=== PATIENT | male | born 1990 | race Caucasian/White ===

== ENCOUNTER 2017-05-16 22:10 | Emergency (ER) | payer BC ==
--- NOTE | 2017-05-16 23:50 | ERNOTE ---
ENT HPI Presenting Symptoms: dental pain Time Seen by Provider: 05/16/17 23:20 Source: patient, RN notes reviewed Exam Limitations: no limitations - Immun/Allergies/Home Medications Immunizations: IMMUNIZATION HX Immunizations Up to Date Yes History of Influenza Vaccine No Hx Pneumococcal Vaccination No Allergies/Adverse Reactions: Allergies Allergy/AdvReac Type Severity Reaction Status Date / Time promethazine HCl AdvReac Severe "OFF THE Verified 05/16/17 22:20 [From Phenergan] WALL" Home Medications: HOME MEDICATIONS Multivitamin [One Daily Multivitamin] 1 each PO DAILY 05/16/17 [Last Taken Unknown] Amoxicillin Trihydrate [Amoxil] 500 mg PO Q8H #30 capsule 05/17/17 [Last Taken Unknown] HYDROcodone/ACETAMINOPHEN [G[place] 5-325 Tablet] 1 - 2 tab PO Q6H PRN #12 tab [Last Taken Unknown] Naproxen [Naprosyn] 500 mg PO BID #20 tablet 05/17/17 [Last Taken Unknown] - History of Present Illness Narrative: Patient states that he broke part of a tooth off a few months ago. It didn't bother him for a long time, but recently that tooth started hurting. The pain has gradually worsened, he is unable to control the pain at home and so presents here for further evaluation and treatment. Severity: Present: severe ENT Location: Present: dental Prearrival Treatment: Present: no prearrival treatment Modifying Factors - Improves: Reports: nothing Modifying Factors - Worsens: Reports: activity, other - eating and drinking Associated Symptoms - ENT: Reports: tooth pain Prior Treament: Reports: recently seen - by a dentist who took x-rays and referred the patient to [facility] for further evaluation and treatment. Review of Systems - Review of Systems Constitutional: Absent: recent illness, fever, chills EYE: Present: no symptoms reported ENT: Present: ear pain, other - tooth pain left #17 Respiratory: Absent: shortness of breath, cough, orthopnea, wheezing Cardiology: Absent: chest pain, palpitations Gastrointestinal/Abdominal: Absent: nausea, vomiting, diarrhea Genitourinary: Present: no symptoms reported Musculoskeletal: Present: no symptoms reported Skin: Present: no symptoms reported Neurological: Present: no symptoms reported - Patient's Past Medical History Patient History - Medical: Obesity Patient History - Cardiac/Respiratory: No pertinent hx Patient History - Cancer: No Hx of Cancer Patient History - Surgical Procedures: Noncontributory Patient History - Other: None - Social History Living Situations: home Psych History: No pertinent hx Smoking Status: Current every day smoker Patient requests Smoking Cessation Consult: No Initiate information on Smoking Cessation: No Alcohol Use: none Drug Use: none - Immunizations Immunizations Up to Date: Yes Hx Pneumococcal Vaccination: No History of Influenza Vaccine: No Physical Exam - Physical Exam General Appearance: Present: wd/wn, alert, moderate distress, obese Head Exam: Present: normal inspection, no evidence of injury Eye Exam: Normal inspection: bilateral, PERRL: bilateral, EOMI: bilateral Ears, Nose, Throat: Present: abnormal TM (L) - dull, normal pharynx, other - Tooth Fracture #17. Absent: cerumen impaction, nasal congestion Neck: Present: normal inspection, nontender Respiratory: Present: no respiratory distress, normal breath sounds, no accessory muscle use, chest nontender, lungs clear Cardiovascular/Chest: Present: regular rate, rhythm, no murmur, normal peripheral pulses Gastrointestinal/Abdominal: Present: normal bowel sounds, nontender, nondistended, soft, other - obese Back Exam: Present: normal inspection, normal range of motion Extremity Exam: Present: normal inspection, normal range of motion Neurological Exam: Present: alert, oriented, normal mood/affect, no motor/ sensory deficits Skin Exam: Present: normal color, warm/dry ED Progress - Vital Signs Patient's Vital Signs:: I have reviewed the patient's vital signs. Vital Signs: Vital Signs 05/16/17 22:15 Temperature 36.9 C Pulse Rate 97 Respiratory 20 Rate Blood Pressure 151/87 O2 Sat by Pulse 99 Oximetry - Progress/Reassessment Chief Complaint: Dental Problem Progress:: Improved Plan - Plan Plan: Toradol 60 mg IM, Amoxicillin 500 mg PO, Hydrocodone/acetaminophen 5/325 mg PO Departure Clinical Impression: Pain, dental - Departure Disposition: Home self-care Condition: Stable Instructions: Tooth Injuries Additional Instructions: Please call [facility] Thursday to see about getting in sooner, the general number for [facility] is . Prescriptions: Amoxicillin Trihydrate [Amoxil] 500 mg PO Q8H #30 capsule HYDROcodone/ACETAMINOPHEN [G[place]stead 5-325 Tablet] 1 - 2 tab PO Q6H PRN #12 tab PRN Reason: Pain Naproxen [Naprosyn] 500 mg PO BID #20 tablet
[2017-05-17] MEDS ORDERED: HYDROcodone/ACETAMINOPHEN 1 EACH TABLET PO ONE (00:08)
[2017-05-17] MEDS ORDERED: AMOXICILLIN TRIHYDRATE 250 MG CAPSULE PO ONE (00:08)
[2017-05-17] MEDS ORDERED: KETOROLAC TROMETHAMINE 60 MG/2 ML VIAL IM ONE ×2 (00:08→00:13)
[2017-05-17] MEDS ORDERED: AMOXICILLIN TRIHYDRATE 250 MG CAPSULE ONE (00:13)
[2017-05-17] MEDS ORDERED: HYDROcodone/ACETAMINOPHEN 1 EACH TABLET ONE (00:13)
[2017-05-17 06:08] VITALS: BP 128/72
== END 2017-05-17 00:26 | disposition home or self-care (01) ==
LOC: ER 22:10
DX: K08.89 Other specified disorders of teeth and supporting structures (principal); F17.200 Nicotine dependence, unspecified, uncomplicated

== ENCOUNTER 2017-06-07 12:26 | Emergency (ER) | payer BC ==
[2017-06-07 12:34] VITALS: BP 145/87
[2017-06-07] MEDS ORDERED: KETOROLAC TROMETHAMINE 60 MG/2 ML VIAL IM ONE ×2 (12:46→12:48)
--- NOTE | 2017-06-07 12:56 | ERNOTE ---
Back Pain ER HPI Date of Service: 06/07/17 Presenting Symptoms: injury/pain to back Time Seen by Provider: 06/07/17 12:41 Source: patient Exam Limitations: no limitations Immunizations: IMMUNIZATION HX Immunizations Up to Date Yes History of Influenza Vaccine No Hx Pneumococcal Vaccination No Allergies/Adverse Reactions: Allergies promethazine HCl [From Phenergan] Adverse Reaction (Severe, Verified 06/07/17 12 :34) "OFF THE WALL" Home Medications: HOME MEDICATIONS Cyclobenzaprine HCl [Flexeril] 5 mg PO TID #10 tab 06/07/17 [Last Taken Unknown] Narrative: Was helping with [employer] clean up yesterday. He swung an entertainment center up and on to truck. [place]oy[place] a pop in his lower back. Did not have much discomfort until he awoke this AM> left lumbar paraspinous was stiff, very sore, and hurt to move. Denies any other symptoms. Timing: Reports: constant Modifying Factors - (Worsens): Reports: movement flexion Review of Systems - Review of Systems Constitutional: Present: no symptoms reported ENT: Present: no symptoms reported Respiratory: Present: no symptoms reported Cardiology: Present: no symptoms reported Gastrointestinal/Abdominal: Present: no symptoms reported Musculoskeletal: Present: other - fleeting left shoulder pain this AM Neurological: Present: no symptoms reported - Patient's Past Medical History Patient History - Medical: Obesity Patient History - Cardiac/Respiratory: No pertinent hx Patient History - Cancer: No Hx of Cancer Patient History - Surgical Procedures: Noncontributory Patient History - Other: None - Family History Mother Family History - Cancer: Breast Father Family History - Medical: Diabetes Type 2 Insulin Dependent Family History - Cardiac/Respiratory: Hypertension - Social History Psych History: No pertinent hx Smoking Status: Current every day smoker - Immunizations Immunizations Up to Date: Yes Hx Pneumococcal Vaccination: No History of Influenza Vaccine: No Physical Exam - Physical Exam General Appearance: Present: wd/wn, alert, no apparent distress, obese Neck: Present: normal inspection, nontender Respiratory: Present: no respiratory distress Back Exam: Present: normal inspection, muscle spasm - left lumbar paraspinuous. Absent: vertebral tenderness ED Progress - Vital Signs Patient's Vital Signs:: I have reviewed the patient's vital signs. Vital Signs: Vital Signs 06/07/17 12:30 Temperature 36.6 C Pulse Rate 104 H Respiratory 16 Rate Blood Pressure 145/87 O2 Sat by Pulse 98 Oximetry - Progress/Reassessment Chief Complaint: Back Pain Plan - Plan Plan: Flexeril, ibprofen, tylenol Follow up with PCP Departure Clinical Impression: Acute lumbar myofascial strain - Departure Disposition: Home self-care Condition: Good Instructions: Muscle Strain, [id number] Additional Instructions: Take flexeril as directed Use ibuprofen 600 mg alternating with 975 mg tylenol every 3 hours. Limit activity Use warm compress Follow up with PCP Prescriptions: Cyclobenzaprine HCl [Flexeril] 5 mg PO TID #10 tab
== END 2017-06-07 13:01 | disposition home or self-care (01) ==
LOC: ER 12:26
DX: S39.012A Strain of muscle, fascia and tendon of lower back, initial encounter (principal); F17.200 Nicotine dependence, unspecified, uncomplicated; X50.0XXA Overexertion from strenuous movement or load, initial encounter; Y93.E9 Activity, other interior property and clothing maintenance

== ENCOUNTER 2019-10-15 10:51 | Observation (INO) ==
[2019-10-15] MEDS ORDERED: MORPHINE SULFATE 2 MG/ML DISP.SYRIN IV ONE ×2 (11:08→15:44)
--- NOTE | 2019-10-15 11:18 | ERNOTE ---
Medical Problem HPI - Narrative Date of Service: 10/15/19 - General Chief Complaint: General Assessment Time Seen by Provider: 10/15/19 11:02 Source: patient Exam Limitations: no limitations - Immun/Allergies/Home Medications Immunizations: IMMUNIZATION HX Immunizations Up to Date Yes History of Influenza Vaccine No Hx Pneumococcal Vaccination No Allergies/Adverse Reactions: Allergies promethazine HCl [From Phenergan] Adverse Reaction (Severe, Verified 10/15/19 10:59) "OFF THE WALL" Home Medications: HOME MEDICATIONS NK 10/15/19 [Last Taken Unknown] - Pain Score Pain Score #1 Pain Score: 7 - History of Present History Narrative: The patient is a 28 year old male who presents for dyspnea and right sided chest pain which has been present for 3 days. There are associated symptoms of right back pain. The patient reports pain to right chest and back, 03/09. There are no alleviating factors. There are aggravating factors of activity. Previous treatments have included: Norflex and Morphine given last evening with improvement then recurred. The past medical history includes: noncontributory. The social history is positive for current tobacco use, patient denies use of vape. The patient has had no ill contacts. Patient states that earlier in the week he developed cough with shortness of breath which has since gradually worsened. Patient states on Thursday he was walking and slipped on the ice catching himself with right arm grabbing nearby object. Patient denies fall. Patient states since Thursday symptoms have gradually worsened. Review of Systems - Review of Systems Constitutional: Present: recent illness, fatigue. Absent: fever EYE: Present: no symptoms reported ENT: Absent: ear pain, nasal drainage, sore throat Respiratory: Present: shortness of breath, cough Cardiology: Present: chest pain Gastrointestinal/Abdominal: Present: nausea. Absent: vomiting, diarrhea, abdominal pain Genitourinary: Present: no symptoms reported. Absent: dysuria Musculoskeletal: Present: back pain Skin: Present: no symptoms reported. Absent: rash Neurological: Present: dizziness/light-headedness All Other Systems: All systems neg except as marked Medical History (Last Reviewed 10/15/19 @ 11:10 by DION Moore) Hemorrhoids Obesity Surgical History: Surgical History (Last Reviewed 10/15/19 @ 11:10 by DION Moore) No pertinent past surgical history Social History: (Last Reviewed 10/15/19 @ 11:10 by DION Moore) Social History: adopted: No foster care: No current occupational status: employed Tobacco: Smoking Status: Current every day smoker Alcohol: alcohol intake frequency: holiday/special occasion Substance Use: substance use type: does not use Physical Exam - Physical Exam General Appearance: Present: wd/wn, alert, moderate distress Head Exam: Present: normal inspection, no evidence of injury Eye Exam: Normal inspection: bilateral Neck: Present: normal inspection, nontender, full range of motion Respiratory: Present: normal breath sounds, lungs clear, chest tenderness - right anterior chest, right lateral chest, respiratory distress - tachypnea, accessory muscle use Cardiovascular/Chest: Present: no murmur, normal peripheral pulses, tachycardia Gastrointestinal/Abdominal: Present: normal bowel sounds, nontender, nondistended, soft, no organomegaly Back Exam: Present: no vertebral tenderness, other - tenderness with palpation over right scapula and right thoracic paraspinal Extremity Exam: Present: normal range of motion, bony tenderness - right scapula, pain over acromium and distal clavicle, other - able to hold extension of right arm against resistance Neurological Exam: Present: alert, oriented, normal mood/affect, no motor/sensory deficits Skin Exam: Present: normal color, warm/dry Progress - Date and Time Seen: Date and Time: 10/15/19 11:48 Well's score, 7.5 high risk. Will proceed with CTA chest. 10/15/19 13:12 Patient feeling better with improved controlled pain along with improvement to tachypnea, RR rate 28. Patient SpO2 97% on 2l/nc. Remains tachycardic with rate of 115. Due to patient presentation with tachypnea, tachycardia and hypoxia with SpO2 90% on RA prior to administration of oxygen will discuss case with for admission with initiation of blood thinner. After discussion with will have case management determine what medication Xarelto vs Eliquis is covered by patient's insurance for discharge. Requesting discussion with pharmacy for Lovenox dosing. Discussed patient case with Tam Malcolm pharmacist and dosing would remain 1mg/kg without max dose, 190mg Q 12 hrs SQ. 10/15/19 13:46 Patient will be admitted for observation admission due to suspected PE with persistent hypoxia and pain management. Patient states pain improved, 01/07. Patient appears improved with RR 23 SpO2 97% remaining on 2l/nc. - Results and Orders Patient's Lab Results:: I have reviewed the patient's lab results. - Vital Signs Patient's Vital Signs:: I have reviewed the patient's vital signs. Vital Signs: Vital Signs 10/15/19 10:52 Temperature 36.8 C Pulse Rate 113 H Respiratory Rate 20 Blood Pressure 152/95 H O2 Sat by Pulse Oximetry 97 - EKG EKG #1 EKG: NSR - tachycardia 112, RBBB - incomplete QRS 114 EKG read: Reviewed by me EKG Comments: No previous tracing for comparison. - CT/Ultrasound CT/Ultrasound Narrative: IMPRESSION: 1. Virtually nondiagnostic exam due to inadequate opacification of the pulmonary arterial system, patient body habitus and breathing motion artifact. Suspected lower lobe PEs bilaterally however again exam is nondiagnostic. Clinical correlation strongly advised 2. Additional comments and findings are as above Electronically signed by Jonatan Rodriguez M.D.. - Progress/Reassessment Chief Complaint: General Assessment Progress:: Improved Departure Clinical Impression: Suspected pulmonary embolism, Hypoxia - Departure Disposition: Still a patient Condition: Stable
[2019-10-15 11:42] LABS: Hematocrit 41.2 % (42.0-52.0); Hemoglobin 13.7 gm/dL (13.5-18.0); Mean Cell Volume 90.7 fl (78-100); Mean Corpuscular Hemoglobin 30.2 pg (27-31); Mean Corpuscular Hgb Conc 33.3 g/dl (32-36); Mean Platelet Volume 10.9 fl (8-11.3); Platelet Count 235 K/mm3 (150-450); Red Blood Count 4.54 M/mm3 (4.7-6.0); Red Cell Distribution Width 13.2 % (11.5-14.0); White Blood Count 14.8 K/mm3 (4.0-10.5)
[2019-10-15] MEDS ORDERED: MORPHINE SULFATE 4 MG/ML SYRG IV ONE (11:48)
[2019-10-15 11:56] LABS: Total Cells Counted 100
[2019-10-15 12:06] LABS: ALT 57 U/L (19-67); AST 29 U/L (0-48); Albumin * 3.8 gm/dl (3.4-5.0); Alkaline Phosphatase * 52 U/L (50-170); Anion Gap 15.5 mmol/L (6.8-13.8); BUN/Creatinine Ratio 14.3 (9.0-21.6); Bilirubin, Total 0.5 mg/dL (0.0-1.1); Blood Urea Nitrogen 12 mg/dL (6-23); Ca. Corrected For Albumin 8.8 mg/dL (8.4-10.2); Carbon Dioxide 25.4 mmol/L (24-32.6); Chloride 102 mmol/L (97-106); Glucose * 111 mg/dL (70-110); Potassium 3.9 mmol/L (3.4-4.6); Sodium 139 mmol/L (132-142); Total Protein 7.9 gm/dL (6.2-8.2)
[2019-10-15 12:07] LABS: Atypical (Reactive) Lymph 1 % (0-2); Lymphocyte 15 % (20-51); Monocyte 3 % (0-9); Neutrophil 81 % (42-75); Platelet Estimate Normal (NORMAL); RBC Morphology Normal (NORMAL); Troponin I Less than 0.017 ng/mL (0.00-0.10)
[2019-10-15] MEDS ORDERED: HYDROmorphone HCL 1 MG/ML DISP.SYRIN IV ONE (12:16)
[2019-10-15] MEDS ORDERED: ENOXAPARIN SODIUM 100 MG/ML SYRG SC SCH (13:30)
[2019-10-15] MEDS ORDERED: ACETAMINOPHEN 325 MG TABLET PO PRN (13:54)
[2019-10-15] MEDS ORDERED: MORPHINE SULFATE 2 MG/ML DISP.SYRIN IV PRN (13:57)
--- NOTE | 2019-10-15 14:40 | HP ---
Chief Complaint - Chief Complaint Date of Service: 10/15/19 Time of Service: 14:07 Chief Complaint: I have right-sided chest pain History of Present Illness: 28-year-old male with past medical history of nicotine dependence, morbid obesity, was evaluated in the ER due to ongoing right-sided thoracic pain that started last Thursday. Patient reports while out shoveling snow and attempting to get into his vehicle he slipped on some black ice and nearly fell, he was able to prevent himself from completely falling by grabbing onto his truck with his right arm. Patient reports the day after that he developed a mildly productive cough and chest congestion and thought he had a simple cold. However several hours later he started having right-sided thoracic pain that he radiated from his right upper thorax into his right shoulder, he also reports pain deep into the shoulder joint making him suspect that he tore his rotator cuff. Patient's pain continued to increase and made it difficult for him to sleep and evening the pain became uncontrollable so he had to come to the ER. Patient was treated with multiple shots of morphine as well as a muscle relaxant and was discharged home after control of the pain was achieved. However he reports the following morning the pain returned even more intense than before, so he had to return to the ER. Patient denies any fever or chills or any recent illness. He also denied having this pain before. He says there are no alleviating factors and aggravating factors is any type of movement. Patient denies any cardiac or pulmonary history but says he has been smoking for 5 years but is currently taking Chantix in order to quit. He went from smoking a pack of cigarettes to 1-1/2 packs of cigarettes a day. Patient also denied any childhood diseases or history of coagulopathies. Medical History (Last Reviewed 10/15/19 @ 11:10 by DION Moore) Hemorrhoids Obesity Surgical History: Surgical History (Last Reviewed 10/15/19 @ 11:10 by DION Moore) No pertinent past surgical history Social History: (Last Reviewed 10/15/19 @ 11:10 by DION Moore) Social History: adopted: No foster care: No current occupational status: employed Tobacco: Smoking Status: Current every day smoker Alcohol: alcohol intake frequency: holiday/special occasion Substance Use: substance use type: does not use Peds Patient Hx - Developmental: No Pertinent Hx Peds Patient Hx - Medical: No Pertinent Hx Peds Patient Hx - Cardiac/Respiratory: No Pertinent Hx Peds Patient Hx - Surgical: No Surgical History Patient History - Cancer: No Hx of Cancer Review Of Systems (GEN) - Review of Systems Generalized/Overall Review: Present: No Symptoms Reported EENTM: Present: No Symptoms Reported Respiratory: Present: Cough, Shortness of Breath Cardiac: Present: Chest Pain Abdominal: Present: No Symptoms Reported Genitourinary: Present: No Symptoms Reported Musculoskeletal: Present: No Symptoms Reported, Joint Pain - Right shoulder and right upper thoracic pain, Muscle Pain Neurological: Present: No Symptoms Reported Skin: Present: No Symptoms Reported Endocrine: Present: No Symptoms Reported Immunizations: IMMUNIZATION HX Immunizations Up to Date Yes History of Influenza Vaccine No Hx Pneumococcal Vaccination No Allergies/Adverse Reactions: Allergies Allergy/AdvReac Type Severity Reaction Status Date / Time promethazine HCl AdvReac Severe "OFF THE Verified 10/15/19 10:59 [From Phenergan] WALL" Home Medications: HOME MEDICATIONS NK 10/15/19 [Last Taken Unknown] Exam - Exam Vital Signs: Vital Signs - Last Taken Temp 36.8 C 10/15/19 10:52 Pulse 112 H 10/15/19 13:58 Resp 20 10/15/19 13:58 BP 135/73 10/15/19 13:58 Pulse Ox 97 10/15/19 13:58 Constitutional: Present: Alert, Oriented x3, Cooperative, Well developed, Well nourished, Acute distress, Mild distress, Morbidly obese ENT Exam: Present: normal ENT inspection, hearing grossly normal, pharynx normal, TMs normal Eye Exam: bilateral eye: normal inspection, PERRL, EOMI Neck: Present: non-tender, full range of motion, supple, normal inspection, trachea midline Back Exam: Present: normal inspection, no CVA tenderness, no vertebral tenderness Breasts: Present: Exam deferred Respiratory: Present: lungs clear, inspiration - Patient has a short inspiratory phase which is interrupted by spasmodic pain of his thorax, he appears uncomfor table. Cardiovascular/Chest: Present: normal peripheral pulses, regular rate, rhythm, no chest tenderness, no edema, no gallop, no JVD, no murmur, no rub, chest tender - Tenderness to palpation in right upper thorax and right shoulder Peripheral Pulses: carotid (R): 3+, carotid (L): 3+, femoral (R): 3+, femoral (L): 3+, dorsalis-pedis (R): 3+, dorsalis-pedis (L): 3+ Abdomen: Present: nontender, nondistended, no rebound tenderness, obese /Rectal: Present: Exam deferred Extremity: Present: normal range of motion, non-tender, normal inspection, no pedal edema, no calf tenderness, normal capillary refill, other - Pain on range of motion of right shoulder Skin Exam: Present: normal color, warm/dry, no cyanosis Lymphatic: Present: no adenopathy Neurologic: Present: tripper II-XII nml as tested, normal cerebellar test, no motor/sensory deficits, alert, normal mood/affect, oriented x 3 Appearance: Present: appropriate appearance, appropriate insight, neat, no memory impairment Eye contact: Present: cooperative, good eye contact, normal speech Thoughts: Present: normal thought pattern, no apparent hallucination Diagnostic Studies: Abnormal Lab Results 10/15/19 10/15/19 10/15/19 Range/Units 11:35 11:35 11:35 WBC 14.8 H (4.0-10.5) K/mm3 RBC 4.54 L (4.7-6.0) M/mm3 Hct 41.2 L (42.0-52.0) % Neutrophils % (Manual) 81 H (42-75) % Lymphocytes % (Manual) 15 L (20-51) % Neutrophils # (Manual) 12.0 H (1.3-6.0) K/mm3 D-Dimer 1.30 H (0.19-0.49) ug/mL Anion Gap 15.5 H (6.8-13.8) mmol/L Random Glucose 111 H (70-110) mg/dL Laboratory Results WBC 14.8 K/mm3 (4.0-10.5) H 10/15/19 11:35 RBC 4.54 M/mm3 (4.7-6.0) L 10/15/19 11:35 Hgb 13.7 gm/dL (13.5-18.0) 10/15/19 11:35 Hct 41.2 % (42.0-52.0) L 10/15/19 11:35 MCV 90.7 fl (78-100) 10/15/19 11:35 MCH 30.2 pg (27-31) 10/15/19 11:35 MCHC 33.3 g/dl (32-36) 10/15/19 11:35 RDW 13.2 % (11.5-14.0) 10/15/19 11:35 Plt Count 235 K/mm3 (150-450) 10/15/19 11:35 MPV 10.9 fl (8-11.3) 10/15/19 11:35 Neutrophils % (Manual) 81 % (42-75) H 10/15/19 11:35 Lymphocytes % (Manual) 15 % (20-51) L 10/15/19 11:35 Monocytes % (Manual) 3 % (0-9) 10/15/19 11:35 Neutrophils # (Manual) 12.0 K/mm3 (1.3-6.0) H 10/15/19 11:35 Lymphocytes # (Manual) 2.2 k/mm3 (1.5-3.5) 10/15/19 11:35 Monocytes # (Manual) 0.4 k/mm3 (0.0-1.0) 10/15/19 11:35 Atypic/Reactive Lymphs 1 % (0-2) 10/15/19 11:35 Platelet Estimate Normal (NORMAL) 10/15/19 11:35 RBC Morphology Normal (NORMAL) 10/15/19 11:35 D-Dimer 1.30 ug/mL (0.19-0.49) H 10/15/19 11:35 Sodium 139 mmol/L (132-142) 10/15/19 11:35 Plasma Sodium 139 mmol/L (130-142) 10/15/19 11:35 Potassium 3.9 mmol/L (3.4-4.6) 10/15/19 11:35 Chloride 102 mmol/L (97-106) 10/15/19 11:35 Carbon Dioxide 25.4 mmol/L (24-32.6) 10/15/19 11:35 Anion Gap 15.5 mmol/L (6.8-13.8) H 10/15/19 11:35 BUN 12 mg/dL (6-23) 10/15/19 11:35 Creatinine 0.84 mg/dL (0.4-1.4) 10/15/19 11:35 Est GFR (Non-Af Amer) 116 mL/min (60-130) 10/15/19 11:35 BUN/Creatinine Ratio 14.3 (9.0-21.6) 10/15/19 11:35 Random Glucose 111 mg/dL (70-110) H 10/15/19 11:35 Calcium 9.0 mg/dL (7.9-10.9) 10/15/19 11:35 Calcium Adj for Albumin 8.8 mg/dL (8.4-10.2) 10/15/19 11:35 Total Bilirubin 0.5 mg/dL (0.0-1.1) 10/15/19 11:35 AST 29 U/L (0-48) 10/15/19 11:35 ALT 57 U/L (19-67) 10/15/19 11:35 Alkaline Phosphatase 52 U/L (50-170) 10/15/19 11:35 Troponin I Less than 0.017 ng/mL (0.00-0.10) 10/15/19 11:35 Total Protein 7.9 gm/dL (6.2-8.2) 10/15/19 11:35 Albumin 3.8 gm/dl (3.4-5.0) 10/15/19 11:35 Assessment/Plan - Narrative Narrative: Patient was evaluated medical chart was reviewed and decision to admit to observation for a diagnosis of bilateral pulmonary embolism and right thoracic pain was made. Patient had an elevated d-dimer and a well score of 7 indicating significant risk of PE, therefore CTA of chest was ordered which revealed probable bilateral pulmonary embolisms. Radiologist reported that it was difficult to confirm the suspicion given the patient's breathing motion artifacts and limited visualization due to his large body habitus. However given the patient's clinical presentation and his risk factors such as nicotine dependence and significant morbid obesity, pulmonary embolism is likely. Therefore patient was transferred to the [facility] floor where he will be treated with therapeutic levels of anticoagulants, medication for optimal pain control, and any other necessary medications. We will keep him under close monitoring and on telemetry for any worsening of his condition. Patient also had an EKG done in the ER that demonstrated a right bundle branch block and sinus tachycardia, cannot be determined if the right bundle branch block is new however sinus tachycardia can be explained by pulmonary embolisms. We will continue to monitor the patient closely and will discuss proper anticoagulation therapy for discharge. - Assessment/Plan (1) Bilateral pulmonary embolism Problem: Acute (2) Morbid obesity Problem: Chronic (3) Smoker Problem: Acute (4) Nicotine dependence Problem: Acute (5) Injury of muscle of chest wall Problem: Acute (6) Fall due to ice or snow Problem: Acute
[2019-10-15] MEDS ORDERED: ALPRAZolam 0.25 MG TABLET PO PRN (14:41)
[2019-10-15] MEDS ORDERED: CYCLOBENZAPRINE HCL 10 MG TABLET PO SCH (17:00)
[2019-10-15 17:21] VITALS: BP 130/50
--- NOTE | 2019-10-17 12:20 | DS ---
(1) Bilateral pulmonary embolism Problem: Acute (2) Morbid obesity Problem: Chronic (3) Smoker Problem: Acute (4) Nicotine dependence Problem: Acute (5) Injury of muscle of chest wall Problem: Acute (6) Fall due to ice or snow Problem: Acute Date of Discharge:: 10/15/19 Hospital Course: Px signed out AMA and went to [facility]. Procedures Performed: none Results and Findings: Lab Pending Results 10/15/19 11:35: WBC 14.8 H, RBC 4.54 L, Hgb 13.7, Hct 41.2 L, MCV 90.7, MCH 30.2, MCHC 33.3, RDW 13.2, Plt Count 235, MPV 10.9, Neutrophils % (Manual) 81 H, Lymphocytes % (Manual) 15 L, Monocytes % (Manual) 3, Neutrophils # (Manual) 12.0 H, Lymphocytes # (Manual) 2.2, Monocytes # (Manual) 0.4, Atypic/Reactive Lymphs 1, Platelet Estimate Normal, RBC Morphology Normal 10/15/19 11:35: Sodium 139, Plasma Sodium 139, Potassium 3.9, Chloride 102, Carbon Dioxide 25.4, Anion Gap 15.5 H, BUN 12, Creatinine 0.84, Est GFR (Non-Af Amer) 116, BUN/Creatinine Ratio 14.3, Random Glucose 111 H, Calcium 9.0, Calcium Adj for Albumin 8.8, Total Bilirubin 0.5, AST 29, ALT 57, Alkaline Phosphatase 52, Troponin I Less than 0.017, Total Protein 7.9, Albumin 3.8 10/15/19 11:35: D-Dimer 1.30 H Disposition: Against medical advice Condition: Stable Face to Face Encounter completed per CMS Guidelines: No Discharge Activity: Activity as tolerated Discharge Diet: Low salt Complete Home Medications List: Complete Home Medication List: Azithromycin [Zithromax] 250 mg PO DAILY #4 tab 10/15/19 Cefdinir 300 mg PO BID #18 cap 10/15/19 Cyclobenzaprine HCl [Flexeril] 10 mg PO TID PRN #30 tab 10/15/19 Naproxen Sodium 550 mg PO BID #30 tab 10/15/19
== END 2019-10-15 16:00 | disposition left against medical advice (07) ==
LOC: MS 10:51 → ER 10:51 → MS 14:05
PROVIDERS: ADMIT Family Medicine; ATTEND Family Medicine
CPT/HCPCS: 36415; 71275; 80053; 84484; 85025; 85379; 93005; 96372; 96374; 96375; 99285; Q9967